=== PATIENT | female | born 1975 | race Caucasian/White ===

== ENCOUNTER 2023-12-15 13:15 | Emergency (ER) | payer MEDICAID, OTHER ==
[~2023-12-15] VITALS: Ht 154.9 cm; Wt 68.0 kg
[2023-12-15 13:37] VITALS: BP 122/83; PULSE 75; RESP 19; TEMP 98; O2SAT 97
[2023-12-15] MEDS: KETOROLAC 30 MG/ML VIAL IM ONE (13:49)
[2023-12-15] MEDS ORDERED: CAPS1ADH5 TP (14:05)
[2023-12-15] MEDS ORDERED: NAPR-1704 PO (14:05)
== END 2023-12-15 14:10 | disposition home or self-care (01) ==
LOC: MED 13:15
DX: S16.1XXA Strain of muscle, fascia and tendon at neck level, initial encounter (principal); Z79.899 Other long term (current) drug therapy; V89.2XXA Person injured in unspecified motor-vehicle accident, traffic, initial encounter; Y93.89 Activity, other specified; Y92.410 Unspecified street and highway as the place of occurrence of the external cause; Y99.8 Other external cause status
CPT/HCPCS: 81025; 96372; 99283; J1885